=== PATIENT | male | born 1990 | race Caucasian/White ===

== ENCOUNTER 2024-03-23 13:58 | Emergency (ER) | payer OTHER, SELFPAY ==
[2024-03-23 14:17] VITALS: BP 118/81; PULSE 98; RESP 16; TEMP 36.8; O2SAT 98
--- NOTE | 2024-03-23 14:20 | ED_ITS ---
HPI - Skin/Abscess/Foreign Bdy General Chief complaint: Skin/Abscess/Foreign Body Stated complaint: Allergic Reaction On face Time Seen by Provider: 03/23/24 14:21 Source: patient Mode of arrival: ambulatory Limitations: no limitations History of Present Illness HPI narrative: 33 yo M presents with c/o itchy rash to scalp for the past few months. Started mild and getting progressively worse. Has hx of psoriasis and eczema but issues for years. also reports itchy rash to bilateral arms past few days. pain and redness to both sides of scalp this week. concerned for infection . All systems reviewed and negative except as noted above. Related Data Allergies Allergy/AdvReac Type Severity Reaction Status Date / Time amoxicillin Allergy Mild THROAT Verified 03/23/24 14:15 SWELLING Review of Systems Review of Systems: CONSTITUTIONAL: Denies fever, chills, or sweats. EYES: Denies visual changes, redness, or discharge. ENT: Denies rhinorrhea, congestion, sore throat, or otalgia. CARDIOVASCULAR: Denies chest pain, palpitations, or edema. RESPIRATORY: Denies cough or dyspnea. GASTROINTESTINAL: Denies abdominal pain, nausea, vomiting, or diarrhea. GENITOURINARY: Denies dysuria or hematuria. SKIN: Reports rash in itching to scalp and bilateral arms. MUSCULOSKELETAL: Denies back pain, joint pain, or myalgia. NEUROLOGIC: Denies headache, numbness, or weakness. PSYCHIATRIC: Denies anxiety or depression. All other systems reviewed are negative, except as documented in HPI. PMFSH Comments At time of signature, agree with nursing past medical, surgical, social and fami ly history. There is no relevant family history pertinent to the presenting complaint. Exam Narrative: GENERAL: This is a well-nourished, well-developed patient, in no apparent distress. HEAD: normocephalic, atraumatic. EYES: PERRL. Sclera clear/white. Vision is grossly intact. EARS: External ears normal NOSE: External nose normal NECK: Neck supple, non-tender without lymphadenopathy, masses or thyromegaly. CARDIOVASCULAR: Regular rate and rhythm without murmurs, gallops, or rubs. RESPIRATORY: Clear to auscultation. Breath sounds equal bilaterally. No wheezes, rales, or rhonchi. SKIN: warm, Dry, intact, good texture and turgor. mild scaly maculopapular rash to bilateral arms and face. erythematous scaly plaques to scalp. temporal region of scalp erythematous, swollen, warm to touch concerning for cellulitis. NEURO: awake, alert, and oriented to person, place and time. There were no o bvious focal neurologic abnormalities. EXTREMITIES: No joint tenderness, effusion, or edema noted. Course Course Level of Care: Express Care Visit Vital Signs Vital signs: Vital Signs Temperature 36.8 C 03/23/24 14:17 Pulse Rate 98 03/23/24 14:17 Respiratory Rate 16 03/23/24 14:17 Blood Pressure 118/81 03/23/24 14:17 Pulse Oximetry 98 03/23/24 14:17 Oxygen Delivery Room Air 03/23/24 14:17 Temperature 36.8 C 03/23/24 14:17 Pulse Rate 98 03/23/24 14:17 Respiratory Rate 16 03/23/24 14:17 Blood Pressure 118/81 03/23/24 14:17 Pulse Oximetry 98 03/23/24 14:17 Oxygen Delivery Room Air 03/23/24 14:17 reviewed MDM - Skin/Abscess/Foreign Bdy MDM Narrative Medical decision making narrative: Patient is well-appearing, nontoxic. Will treat patient with prednisone for eczema and psoriasis flare. Treat with antibiotic due to concern for cellulitis to scalp. Patient agrees with plan of care. Plans to follow-up with cutter grind tool technician. Patient is aware of diagnosis, understands and agrees to treatment plan. Anticipatory guidance given. Patient agrees to follow-up as directed and is aware of reasons to seek care at the emergency department. Portions of this record may have been created with voice recognition software Discharge Plan Discharge Clinical Impression: Psoriasis of scalp, Cellulitis of head or scalp, Rash and other nonspecific skin eruption Patient Disposition: Home, Self-Care Condition: Stable Instructions: Antibiotic Form, Psoriasis (ED) Additional Instructions: Take prednisone as prescribed. Apply steroid cream to eczema rash. Avoid face. Take an [id number] antihistamine to treat itching such as Benadryl or Zyrtec as directed on packaging instructions. Follow-up with your primary care physician for further evaluation. Patient Language: Surinamese Prescriptions: New prednisone 20 mg tablet See Rx Instructions .ROUTE .COMPLEX Qty: 12 0RF Rx Instructions: Take 3 tablets today, then 2 tablets daily for 3 days then 1 tablet daily for 3 days. triamcinolone acetonide 0.1 % cream 1 applic topical BID PRN (Reason: eczema) Qty: 80 0RF doxycycline hyclate 100 mg capsule 100 mg PO BID 7 Days Qty: 14 0RF Follow-up/Referrals: PHYSICIAN,HIGH SCHOOL BAND DIRECTOR [Primary Care Provider] - Stand Alone Forms: Work/School Release IP Time of Disposition: 14:28
== END 2024-03-23 14:36 | disposition home or self-care (01) ==
PROVIDERS: Emergency Provider Nurse Practitioner Family
DX: L40.9 Psoriasis, unspecified (principal); L03.811 Cellulitis of head [any part, except face]; R21 Rash and other nonspecific skin eruption
CPT/HCPCS: 99213; G0463

== ENCOUNTER 2024-09-17 11:15 | Emergency (ER) | payer BC, SELFPAY ==
[2024-09-17 11:25] VITALS: BP 160/93; PULSE 79; RESP 16; TEMP 36.3; O2SAT 98
--- NOTE | 2024-09-17 11:30 | ED.HA ---
HPI - Headache General Chief Complaint: Headache Stated Complaint: Migraine Time Seen by Provider: 09/17/24 11:20 Source: patient Mode of arrival: ambulatory Limitations: no limitations History of Present Illness HPI Narrative: John is a 34-year-old male patient presenting to the clinic today with complaints of a sudden migraine headache. He reports he does not have a personal history of migraine headaches. Headache just started approximately 5-6 hours ago. Headache is frontal and behind his eyes. He has taken Tylenol and ibuprofen for the pain and is not helping. Rates his pain a 9/10 currently. States he is having associated nausea and photosensitivity. Is requesting a migraine shot. Denies any URI symptoms, fevers, or sore throat. Denies any head injury. Related Data Home Medications ?Medication ?Instructions ?Recorded ?Confirmed ?Last Taken ?Type testosterone cypionate 200 mg/mL mg 09/17/24 Unknown History intramuscular oil Allergies Allergy/AdvReac Type Severity Reaction Status Date / Time amoxicillin Allergy Mild THROAT Verified 09/17/24 11:28 SWELLING Review of Systems Review of Systems: Pertinent positives per HPI. Patient denies any fever, chills, rash, visual changes, dizziness, cough, runny nose, sore throat, shortness of breath, chest pain, palpitations, vomiting, diarrhea, constipation, abdominal pain, or any urinary issues. PMFSH Comments At the time of my signature, I reviewed and agree with the nursing past medical, surgical, social, and family history. There is no relevant family history pertinent to the patient complaint. Exam Narrative: General: Well-developed, well nourished, in no apparent distress Head: Normocephalic, atraumatic Eyes: Pupils equally round and reactive to light bilaterally, EOM intact, sclera and conjunctive clear, no discharge, lids normal Ears: TMs intact and clear, ear canals clear, no drainage, grossly hearing normal. Nose: Nares patent, no discharge, no inflammation, no sinus tenderness. Mouth: Oropharynx without lesions or masses, good dentition, MMM. Tongue midline, even rise and fall of uvula Neck: Supple, trachea midline, no enlargement of anterior or posterior cervical nodes, no thyroid masses or goiter palpable. Cardio: Regular rate and rhythm, s1 and s2 normal, no murmur appreciated. Resp: Clear to auscultation bilaterally anteriorly and posteriorly, no rhonchi, rales, wheezing or rubs Musculoskeletal: No deformity, non-tender to palpation, grossly normal range of motion, muscle strength strong and equal, peripheral pulse strong, no edema, no cyanosis, normal gait and station Neuro: Alert and oriented x4 with normal speech, no focal deficits, cranial nerves I through XII intact, muscle strength 5 out of 5, sensation intact bilaterally, negative Romberg test Course Course Emergency Course: Portions of this record may have been created with voice recognition software. Level of Care: Express Care Visit Vital Signs Vital signs: Vital Signs Temperature 36.3 C L 09/17/24 11: Pulse Rate 79 09/17/24 11:25 Respiratory Rate 16 09/17/24 11: Blood Pressure 160/93 H 09/17/24 11: Pulse Oximetry 98 09/17/24 11: Oxygen Delivery Room Air 09/17/24 11: Temperature 36.3 C L 09/17/24 11:25 Pulse Rate 79 09/17/24 11:25 Respiratory Rate 16 09/17/24 11:25 Blood Pressure 160/93 H 09/17/24 11:25 Pulse Oximetry 98 09/17/24 11:25 Oxygen Delivery Room Air 09/17/24 11:25 Vital signs reviewed MDM - Headache MDM Narrative Medical decision making narrative: At the time of visit patient appears to be in acute distress due to headache. Patient appears to be nontoxic. BP is elevated- 160/93. Denies dizziness but has associated nausea and light sensitivity. Plan: Recommend transfer to the emergency room as patient does not have prior history of migraine headaches and states that this is the worst headache he has ever had. He has already taken Tylenol and ibuprofen and this did not help his headache. Patient declines transfer to the emergency room. Risk and benefits were reviewed. Patient leaving against medical advice per Differential Diagnosis Differential diagnosis: Likely migraine, tension headache, subarachnoid hemorrhage, headache, meningitis and sinusitis Discharge Plan Discharge Clinical Impression: Headache Qualifiers: Headache type: unspecified Headache chronicity pattern: acute headache Intractability: intractable Qualified Code(s): R51.9 - Headache, unspecified Patient Disposition: Left Against Medical Advice Condition: Stable Instructions: Acute Headache (ED) Additional Instructions: Recommend going to the emergency room for further evaluation and you declined. AMA was reviewed Risk include worsening of condition, , disability, brain bleed, brain tumor, and stroke Benefits include further treatment, different diagnosis, and better outcome Follow-up with your PCP as soon as possible or go to the emergency room Patient Language: Indonesian Prescriptions: No Action testosterone cypionate 200 mg/mL oil Follow-up/Referrals: PHYSICIAN,AWNING HANGER SUPERVISOR [Primary Care Provider] - Time of Disposition: 11:38 Quality NIHSS Nursing Documentation ED NIHSS nursing documentation: reviewed/agree
== END 2024-09-17 11:42 | disposition left against medical advice (07) ==
PROVIDERS: Emergency Provider Nurse Practitioner Family
DX: R51.9 Headache, unspecified (principal)
CPT/HCPCS: 99213; G0463

== ENCOUNTER 2024-10-16 02:24 | Emergency (ER) | payer BC, SELFPAY ==
--- NOTE | ~2024-10-16 | XR_ITS ---
XR shoulder RT min 2V, XR scapula RT 10/16/2024 04:22 Indication: Scapular pain Procedure: 3 views right shoulder and 2 views right scapula Comparison: No prior studies for comparison. Findings: There is anatomic alignment. No fracture, subluxation or dislocation. No soft tissue abnorm ality. Impression: 1: No acute fracture. Reviewed, dictated and finalized at location A. Impression: 1: No acute fracture. Impression: 1: No acute fracture.
[2024-10-16 02:26] VITALS: BP 157/102; PULSE 96; RESP 20; TEMP 36.8; O2SAT 98
--- OUTSIDE RECORDS SUMMARY | 2024-10-16 02:26 | XMS_ITS | Encounter Summary ---
Author Organization [facility] Healthcare Address [address] [place] [address] Care Team Providers Care Tennis Professional Name Role Phone Aster Cantu MD Primary Care Provider [phone] Moni Salcido NP Primary Care Provider [phone] Reason for Visit * Reason Onset Date Comments Post call 01/17/2023 Encounter Details Date Type Department Care Team (Late st Contact Info) Description 01/17/2023 Telephone [facility] [address] [address], [address] [place] [address] Lia Boyd MD [address] [place] [address] Post call Social History Tobacco Use Types Packs/Day Years Used Date Smoking Tobacco: Never AUDIT-C Answer Date Recorded Q1: How often do you have a drink containing alc ohol? Monthly or less 01/03/2023 Q2: How many drinks containi ng alcohol do you have on a typical day when you are drinking? 1 or 2 01/03/2023 Q3: How often do you have si x or more drinks on one occasion? 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 Author CCM Chronic Pain Care Plan Chronic Care Management Yes Danii Barboza, RN Note: Problem: Chronic Pain Goals: 1. Minimize further functional decline 2. Maximize quality of life 3. Control pain Strategies: - Activity/exercise program recommendation - Conservative stepwise pain medicine strategy with multi-disciplinary approach - Recommend healthy lifestyle strategies and compensatory methods as needed Reduce the likelihood of falling Lifestyle No Jaqueline Muniz, SALINAS Note: Below are four things you can do to prevent falls: Begin an exercise program to improve your leg strength & balance Ask your doctor or pharmacist to review your medicines Get annual eye check-ups & update your eyeglasses Make your home safer by: Removing clutter & tripping hazards Putting railings on all stairs & adding grab bars in the bathroom Having good lighting, especially on stairs Contact your local community or [facility] for information on exercise, fall prevention programs, or options for improving home safety. documented as of this encounter Visit Diagnoses Not on filedocumented in this encounter Care Teams Tennis Professional Relationship Specialty Start Date End Date Aster Cantu MD [address] [place] [address] PCP - General Internal Medicine 12/17/21 03/28/24 Moni Salcido NP [address] [place] [address] PCP - General Family Medicine 03/29/24 documented as of this encounter
--- OUTSIDE RECORDS SUMMARY | 2024-10-16 02:26 | XMS_ITS ---
Author Organization [facility], Address [address] [place] [address] Care Team Providers Care Cooker Loader Name Role Phone Aster Cantu Primary Care Provider Sarbjit Henriquez Unavailable [phone] Nelda Sanchez Unavailable [phone] ALLERGIES Allergen (clinical drug ingredient) Drug/Non Drug Allergy documented on EMR Reaction Allergy Type Onset Date Status amoxicillin Amoxicillin Unknown Drug Allergy Act padmaja RESULTS Component Value Reference Range Notes MRI : Lumbar without contras t Reviewed date:03/15/2024 11:12:39 AM Interpretation: Performing Lab: Notes/Report: X ray : Lumbar Spine 3 views , AP, Lateral, Spot Reviewed date:03/11/2024 02:23:25 PM Interpretation: Performing Lab: Notes/Report: REASON FOR VISIT Lumbar MEDICATIONS Medication SIG (Take, Route, Frequency, Duration) Notes Start Date End Date Status HYDROcodone-Acetamino phen Active Testosterone Replacement Therapy Active SOCIAL HISTORY Tobacco Use: Social History Observation Description Date Details (start date - stop date) Never Smoker NA - NA Sex Assigned At : Social History Observation Description Sex Assigned At Unknown Tobacco Use/Smoking Question Answer Notes Are you a nonsmoker Alcohol Screen Question Answer Notes Did you have a drink containing alcohol in the p ast year? No Points 0 Interpretation Negative PROBLEMS Problem Type ICD Code Onset Dates Problem Status W/U Status Risk SNOMED Code Notes Problem Low back pain of multiple sites of spine with sciatica (M54.40) Active confirmed Problem DDD (degenerative disc disease), lumbar (M51.36) Active confirmed Degenerative disc disease (66543476) VITAL SIGNS BMI 27.98 kg/m2 03/11/2024 Height 70 in 03/11/2024 Weight 195 lbs 03/11/2024 Encounters Encounter Location Date Provider Diagnosis [facility] [address] [place] [address] 03/11/2024 Nelda Sanchez Other low back pain M54.59 and Disc Degeneration, Lumbar Region with Leg Pain M51.361 ASSESSMENTS Encounter Date Diagnosis Assessment Notes Treatment Notes Treatment Clinical Notes 03/11/2024 Other low back pain (ICD-10 - M54.59) 03/11/2024 Disc Degeneration, Lumbar Region with Leg Pain (ICD-10 - M51.361) PLAN OF TREATMENT No Information Progress Notes * Examination Category Sub-Category Detail Notes X-Ray LUMBAR X-RAY: AP and lateral v iews of the lumbar spine were obtained today. They demonstrate L3 to 4 with mild disc degeneration. L4 to 5 with moderate disc degeneration and there is a sacralized L5
--- OUTSIDE RECORDS SUMMARY | 2024-10-16 02:27 | XMS_ITS | Patient Health Record ---
Author Organization [facility] Address [address] [place] [address] Care Team Providers Care Applied Mathematician Name Role Phone Marlys Hyman Primary Care Provider Yossi Giang Unavailable [phone] Chrissy CORDERO, Valdez Unavailable Unavailable Allergies Allergen (clinical drug ingredient) Drug/Non Drug Allergy documented on EMR Reaction Allergy Type Onset Date Status amoxicillin Amoxicillin Unknown Drug Allergy Act padmaja Reason For Referral No Information Medications Medication SIG (Take, Route, Frequency, Duration) Notes Start Date End Date Status Testosterone Cypionate Active Anastrozole Active Easy Touch Syringe Barrel 1ml Active Naproxen Active Cyclobenzaprine HCl Active methylPREDNISolone A ctive Neurontin 300 MG 1 capsule [address] ee times a day; Duration: 30 day(s) 05/31/2020 Active Social History Tobacco Use: Social History Observation Description Date Details (start date - stop date) Never Smoker NA - NA Tobacco Use/Smoking Question Answer Notes Are you a nonsmoker Alcohol Screen (Audit-C) Question Answer Notes Did you have a drink containing alcohol in the p ast year? Yes Points 0 Interpretation Negative Problems Problem Type SNOMED Code ICD Code Onset Dates Problem Status W/U Status Risk Notes Problem Fear of medical treatment (821831662) Fear of injections and transfusions (F40.231) Active confirmed Problem Lumbosacral spondylosis without myelopathy (71587507) Spondylosis without myelopathy or radiculopathy, lumbar region (M47.816) Active confirmed Problem Degeneration of lumbar intervertebral disc (94647260) Other intervertebral disc degeneration, lumbar region (M51.36) Active confirmed Problem Lumbar radiculopathy (820967675) Radiculopathy, lumbar region (M54.16) Active confirmed Plan Of Treatment No Information Insurance Providers Payer Name Payer Address Payer Phone Subscriber Number Group Number Insured Name Patient Relationship to Insured Coverage Start Date Coverage End Date [employer] [address] [address] [place] [address] [id number] John Montano Self - patient is the insured Medical (General) History Surgical History Surgery Date(Month/Year) reconstruction on finger
--- OUTSIDE RECORDS SUMMARY | 2024-10-16 02:27 | XMS_ITS ---
Author Organization [facility], Address [address] [facility] [address] [place] [address] Care Team Providers Care Fiberglass Boat Maker Name Role Phone AlondraAster webber Primary Care Provider Sarbjit Henriquez Unavailable [phone] REASON FOR VISIT SNN MRI Cervical PROCEDURES Procedure Date Ordered Date Performed Result Body Sit e Lumbar Epidural Steroid Injection 03/29/2024 04/01/2024 N/ A Encounters Encounter Location Date Provider Diagnosis [facility] [facility] [address] [place] [address] 03/29/2024 Sarbjit Tavares DDD (degenerative disc disease), lumbar M51.36 ASSESSMENTS Encounter Date Diagnosis Assessment Notes Treatment Notes Treatment Clinical Notes 03/29/2024 DDD (degenerative disc disease), lumbar (ICD-10 - M51.36) PLAN OF TREATMENT No Information
--- OUTSIDE RECORDS SUMMARY | 2024-10-16 02:27 | XMS_ITS | Clinical Summary ---
Author Organization [facility] Address [address] [place] [address] Care Team Providers Care Mohel Name Role Phone Moni Salcido NP Primary Care Provider [phone] Allergies Active Allergy Reactions Criticality Noted Date Comments Amoxicillin Hives,Swelling High 09/08/2012 Swelling Medications syringe, disposable, (Easy Touch Luer Lock Syringe) 1 mL syringe USE FOR INJECTIONS DIRECTED (INCLUDE 18G AND 23G NEEDLES) 0 Active testosterone cypionate (DEPO-TESTOTERO NE) 200 mg/mL injection Inject 1.1 mL (220 mg total) into the muscle as instructed every 14 (fourteen) days 2.5 mL 1 5 Active Active Problems Problem Noted Date Diagnosed Date Healthcare maintenance 03/29/2024 Assessment & Plan (03/29/2024 11:55 AM PHYSICS TEACHER): - Obtain labs - Discussed with the patient current recommendations for routine screenings. Recommend colon cancer screening with colonoscopy or a DNA stool testing such as Cologuard starting age 45. Prostate cancer screening is recommended from 55-60 9 years old. Discussed diet exercise and importance of maintaining a healthy weight. Hives 03/29/2024 Assessment & Plan (03/29/2024 11:58 AM PHYSICS TEACHER): - Recent significant episode on face, neck and scalp - Patient instructed to report to emergency room if rash occurs with shortness of Breath - Report back to the office with continued symptoms - May use small amount of vpon-[id number] hydrocortisone and Benadryl cream for residual hives of forehead at this time. Discussed do not want to use larger amounts of steroids on delicate facial skin as can cause damage - Patient denies any change in hygiene products, detergents, or bedding. Denies food trigger. - Refer to ripper operator for further evaluation of cause of hives Atopic dermatitis 03/29/2024 Assessment & Plan (03/29/2024 11:59 AM PHYSICS TEACHER): - Chronic, stable - Patient with recent hives exacerbation but no recent eczema exacerbation - Refer to dermatology for further evaluation if recent hives and history of eczema - Keep skin clean and dry - Ensure hydrated skin with frequent use of lotions/emollients Low testosterone in male 03/29/2024 Assessment & Plan (03/29/2024 12:00 PM PHYSICS TEACHER): - Chronic - Obtain updated testosterone level - Dosing of testosterone based on updated testosterone level. Previously receiving 200 milligrams/milliliter testosterone cypionate injection every 2 weeks Lumbosacral spondylosis without myelopathy 12/01 Lumbar radiculopathy 12/02/2023 Fear of injections and transfusions 12/02/2023 Spondylosis of lumbar region without myelopathy or radiculopathy 08/22/2022 Intractable low back pain 08/22/2022 DDD (degenerative disc disease), lumbar 01/24/20 Lumbar discogenic pain syndrome 01/23/2022 FATUMA (generalized anxiety disorder) 09/21/2021 Assessment & Plan (03/29/2024 11:52 AM PHYSICS TEACHER): - Chronic, stable - Currently managed without medication Insomnia 09/15/2019 Assessment & Plan (03/29/2024 11:51 AM PHYSICS TEACHER): - Chronic, stable - Currently managed without medication Chronic bilateral low back pain with bilateral s ciatica 09/15/2019 Assessment & Plan (03/29/2024 11:55 AM PHYSICS TEACHER): - Chronic, stable - Follows with pain management, Dr. Boyd. Per Dr. Boyd I had an extensive discussion with the patient regarding his treatment options. Unfortunately there are several interventions that could possibly be beneficial such as peripheral nerve stimulation or intradiscal injection therapy however this will not be approved by the patient's insurance plan. We discussed the option of caudal epidural steroid injection. I explained the procedure in full detail discussing all the risks and benefits. The patient understands and wishes to proceed with this option. - Injection scheduled for April 16, 2024 - Not currently taking [place] Resolved Problems Problem Noted Date Diagnosed Date Resolved Date No diagnosis on [place] I 08/22/202203/29 Other chronic pain 08/22/2022 4 Chewing tobacco nicotine dep endence, uncomplicated 07/14/2018 03/29/2024 Immunizations Immunization Administration Dates Next Due Influenza, Quadrivalent, Spl it, Preservative Free, Intramuscular 03/02/2020,01/13/2019 Tdap 01/13/2019 Surgical History Surgery Date Site/Laterality Comments HAND SURGERY Medical History Medical History Date Comments Low back pain Chronic pain disorder Family History Medical History Relation Name Comments Cancer Father Heart disease Father Cancer Maternal Grandfather Diabetes Maternal Grandfather Heart disease Maternal Grandfather Cancer Paternal Grandmother Relation Name Status Comments Father Maternal Grandfather Paternal Grandmother Social History Tobacco Use Types Packs/Day Years Used Date Smoking Tobacco: Never Smokeless Tobacco: Never Tobacco Cessation:Counseling Given: Not Answered AUDIT-C Answer Date Recorded Q1: How often do you have a drink containing alcohol? Monthly or less 03/29/2024 Q2: How many drinks containi ng alcohol do you have on a typical day when you are drinking? Patient does not drink Q3: How often do you have si x or more drinks on one occasion? 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 file Obstetrics History Last Filed Vital Signs Vital Sign Reading Time Taken Comments Blood Pressure 122/82 03/29/2024 10:08 AM PHYSICS TEACHER Pulse 84 03/29/2024 10:08 AM PHYSICS TEACHER Temperature 36.4 C (97.6 F) 03/29/2024 10:08 AM PHYSICS TEACHER Respiratory Rate 20 03/29/2024 10:08 AM PHYSICS TEACHER Oxygen Saturation 95% 03/29/2024 10:08 AM PHYSICS TEACHER Inhaled Oxygen Concentration - - Weight 90.8 kg (200 lb 1.6 oz) 03/29/2024 10:08 AM PHYSICS TEACHER Height 177.8 cm (5' 10) 03/29/2024 10:08 AM PHYSICS TEACHER Body Mass Index 28.71 03/29/2024 10:08 AM PHYSICS TEACHER Plan of Treatment Health Maintenance Due Date Last Done Comments Varicella Vaccines (1 of 2 - 13+ 2-dose series) 2003 Regular Well Visit/Exam 18-64 2008 Influenza Vaccine (Season Ended) 2024 03/02/2020, 01/13/2019 Depression Screening 03/29/2025 03/29/2024, 03/29/2024 DTaP/Tdap/Td Vaccine (2 - Td or Tdap) 01/13/2029 01/13/2019 Hepatitis B Screening Completed 03/29/2024 Hepatitis C Screening Completed 03/29/2024 HPV Vaccines Aged Out No longer eligi ble based on patient's age to complete this topic Pneumococcal vaccine <65 Aged Out No longer eligible based on patient's age to complete this topic Goals Goal Patient Goal Type Associated Problems [...] Reduce the likelihood of falling Lifestyle No Jqaueline Muniz, RN Note: Below are four things you can [...] on stairs Contact your local community or senior [place] for information on exercise, fall prevention programs, or options for improving home safety. Procedures Procedure Name Priority Date/Time Associated Diagnosis Comments HEPATITIS C ANTIBODY Routine 03/29/2024 10:53 AM PHYSICS TEACHER Encounter for hepatitis C screening test for low risk patient from Last 3 Months or Most Recently Relevant to Health Maintenance Results * Hepatitis C antibody Blood (03/29/2024 10:53 AM PHYSICS TEACHER) Hep C Ab Nonreactive Nonreactive Comment: Antibodies to HCV not detected. Does NOT exclude the possibility of recent exposure to HCV. Current interpretive data was last revised on 21 Interpretive Data Nonreactive: Antibodies to HCV not detected. Does NOT exclude the possibility of recent exposure to HCV. Equivocal: Equivocal for HCV antibodies. Supplemental molecular testing will be automatically performed to determine infection status in accordance with current CDC screening recommendations. Reactive: Positive for HCV antibodies. This may represent current or past HCV infection. Supplemental molecular testing will be automatically performed to determine current infection status in accordance with current CDC screening recommendations. Interpretive data was last revised on 2019. Blood 03/29/2024 10:5 3 AM PHYSICS TEACHER 03/29/2024 12:23 PM PHYSICS TEACHER Moni Salcido NP LAB MICROBIOLOGY - GENERAL OR DERABLES Final Result [facility] [address] [facility] Department of Laboratories [place], [place] [id number] from Last 3 Months or Most Recently Relevant to Health Maintenance Insurance [facility] HMO/PPO Address: [address] [address] [place] [address] [facility] HMO/PPO Address: [facility] [address] [place] [address] Care Teams Mohel Relationship Specialty Start Date End Date Moni Salcido NP PCP - General Family Medicine 03/29/24
--- OUTSIDE RECORDS SUMMARY | 2024-10-16 02:27 | XMS_ITS | Referral Summary ---
Author Organization [facility] Address [address] [place] [address] Care Team Providers Care Inclinometer Tester Name Role Phone Moni Salcido NP Primary Care Provider [phone] Allergies Active Allergy Reactions Criticality Noted Date [...] 03/29/2024 Assessment & Plan (03/29/2024 11:55 AM FOUNDATION DRILL OPERATOR): - Obtain labs - Discussed with the patient current recommendations for routine screenings. Recommend colon cancer screening with colonoscopy or a DNA stool testing such as Cologuard starting age 45. Prostate cancer screening is recommended from 55-60 9 years old. Discussed diet exercise and importance of maintaining a healthy weight. Hives 03/29/2024 Assessment & Plan (03/29/2024 11:58 AM FOUNDATION DRILL OPERATOR): - Recent significant episode on face, neck and scalp - Patient instructed to report to emergency room if rash occurs with shortness of Breath - Report back to the office with continued symptoms - May use small amount of dvhk-xgu-joopjoj hydrocortisone and Benadryl cream for residual hives of forehead at this time. Discussed do not want to use larger amounts of steroids on delicate facial skin as can cause damage - Patient denies any change in hygiene products, detergents, or bedding. Denies food trigger. - Refer to etiology teacher for further evaluation of cause of hives Atopic dermatitis 03/29/2024 Assessment & Plan (03/29/2024 11:59 AM FOUNDATION DRILL OPERATOR): - Chronic, stable - Patient with recent hives exacerbation but no recent eczema exacerbation - Refer to dermatology for further evaluation if recent hives and history of eczema - Keep skin clean and dry - Ensure hydrated skin with frequent use of lotions/emollients Low testosterone in male 03/29/2024 Assessment & Plan (03/29/2024 12:00 PM FOUNDATION DRILL OPERATOR): - Chronic - Obtain updated testosterone level [...] 09/21/2021 Assessment & Plan (03/29/2024 11:52 AM FOUNDATION DRILL OPERATOR): - Chronic, stable - Currently managed without medication Insomnia 09/15/2019 Assessment & Plan (03/29/2024 11:51 AM FOUNDATION DRILL OPERATOR): - Chronic, stable - Currently managed without medication Chronic bilateral low back pain with bilateral s ciatica 09/15/2019 Assessment & Plan (03/29/2024 11:55 AM FOUNDATION DRILL OPERATOR): - Chronic, stable - Follows with pain [...] April 16, 2024 - Not currently taking [place] Resolved Problems Problem Noted Date Diagnosed Date Resolved Date No diagnosis on [place] I 08/22/202203/29 Other chronic pain 08/22/2022 4 Chewing tobacco nicotine dep endence, uncomplicated 07/14/2018 03/29/2024 Immunizations Immunization Administration Dates Next Due Influenza, Quadrivalent, Spl it, Preservative Free, Intramuscular 03/02/2020,01/13/2019 Tdap 01/13/2019 Social History Tobacco Use Types Packs/Day Years [...] on file Legal Sex Male 1:38 AM FOUNDATION DRILL OPERATOR Gender Identity Not on file Sexual Orientation Not on file 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 Filed Vital Signs Vital Sign Reading Time Taken Comments Blood Pressure 122/82 03/29/2024 10:08 AM FOUNDATION DRILL OPERATOR Pulse 84 03/29/2024 10:08 AM FOUNDATION DRILL OPERATOR Temperature 36.4 C (97.6 F) 03/29/2024 10:08 AM FOUNDATION DRILL OPERATOR Respiratory Rate 20 03/29/2024 10:08 AM FOUNDATION DRILL OPERATOR Oxygen Saturation 95% 03/29/2024 10:08 AM FOUNDATION DRILL OPERATOR Inhaled Oxygen Concentration - - Weight 90.8 kg (200 lb 1.6 oz) 03/29/2024 10:08 AM FOUNDATION DRILL OPERATOR Height 177.8 cm (5' 10) 03/29/2024 10:08 AM FOUNDATION DRILL OPERATOR Body Mass Index 28.71 03/29/2024 10:08 AM FOUNDATION DRILL OPERATOR Plan of Treatment Not on file Goals Goal Patient Goal Type Associated Problems [...] stairs Contact your local community or senior [place] for information on exercise, fall prevention programs, or options for improving home safety. Procedures Procedure Name Priority Date/Time Associated Diagnosis Comments HEPATITIS C ANTIBODY Routine 03/29/2024 10:53 AM FOUNDATION DRILL OPERATOR Encounter for hepatitis C screening test for low risk patient from Last 3 Months or Most Recently Relevant to Health Maintenance Results * Hepatitis C antibody Blood (03/29/2024 10:53 AM FOUNDATION DRILL OPERATOR) Hep C Ab Nonreactive Nonreactive Comment: Antibodies [...] on 2019. Blood 03/29/2024 10:5 3 AM FOUNDATION DRILL OPERATOR 03/29/2024 12:23 PM FOUNDATION DRILL OPERATOR Moni Salcido NP LAB MICROBIOLOGY - GENERAL OR DERABLES Final Result [facility] [address] [facility] Department [place] [address] from Last 3 Months or Most Recently Relevant to Health Maintenance Insurance [address] [place] [address] [facility] Care Teams Inclinometer Tester Relationship Specialty Start Date End Date Moni Salcido NP PCP - General Family Medicine 03/29/24
--- OUTSIDE RECORDS SUMMARY | 2024-10-16 02:27 | XMS_ITS | Patient Health Record ---
Author Organization [facility] Address [address] [place] [address] Care Team Providers Care Hospitality Host Name Role Phone Aster Cantu Primary Care Provider Sarbjit Henriquez Unavailable [phone] Nelda Sanchez Unavailable [phone] ALLERGIES Allergen (clinical drug ingredient) Drug/Non Drug [...] PM Interpretation: Performing Lab: Notes/Report: REASON FOR REFERRAL No Information MEDICATIONS Medication SIG (Take, Route, Frequency, Duration) [...] lumbar (M51.36) Active confirmed Degenerative disc disease (69732254) VITAL SIGNS Height 70 in 03/11/2024 Weight 195 lbs 03/11/2024 BMI 27.98 kg/m2 03/11/2024 PROCEDURES Procedure Date Ordered Date Performed Result Body Sit e Lumbar Epidural Steroid Injection 03/29/2024 04/01/2024 N/ A Encounters Encounter Location Date Provider Diagnosis [facility] [address] [facility] [address] [place] [address] 03/11/2024 Nelda Sanchez Other low back pain M54.59 and Disc Degeneration, Lumbar Region with Leg Pain M51.361 [facility] [address] [facility] [address] [place] [address] 03/29/2024 Sarbjit Tavares DDD (degenerative disc disease), lumbar M51.36 ASSESSMENTS Encounter Date Diagnosis Assessment Notes Treatment Notes Treatment Clinical Notes 03/11/2024 Other low back pain (ICD-10 - M54.59) 03/11/2024 Disc Degeneration, Lumbar Region with Leg Pain (ICD-10 - M51.361) 03/29/2024 DDD (degenerative disc disease), lumbar (ICD-10 - M51.36) PLAN OF TREATMENT No Information Insurance Providers Payer Name Payer Address Payer Phone Subscriber Number Group Number Insured Name Patient Relationship to Insured Coverage Start Date Coverage End Date r [address] [address] [facility] [place] [place] [address] [id number] John Montano Self - patient is the insured MEDICAL (GENERAL) HISTORY Medical History History ICD Code Unremarkable Surgical History Surgery Date(Month/Year) Right [place] Finger Hospitalization History Reason Date(Month/Year) As per above.
--- OUTSIDE RECORDS SUMMARY | 2024-10-16 02:27 | XMS_ITS | Clinical Summary ---
Author Organization [facility] Address [address] [place] [address] Care Team Providers Care Application Services Manager Name Role Phone Aster Cantu MD Primary Care Provider [phone] Allergies Active Allergy Reactions Criticality Noted Date Comments Amoxicillin Hives High 09/26/2017 Medications Easy Touch Luer Lock Syringe 1 mL Syringe USE FOR INJECTIONS DIRECTED (INCLUDE 18G AND 23G NEEDLES) 08/19/19 20 Active anastrozole (ARIMIDEX) 1 mg tablet Active testosterone cypionate (DEPO-TESTOSTE JANNETH) 200 mg/mL Oil INJECT 1ML(200MG) INTRAMUSCULARLY ONCE WEEKLY 03/21/20 21 Active CLOMIPHENE CITRATE ORAL Take by mouth. Ac tive tiZANidine (ZANAFLEX) 4 mg TabletIndicati ons:Acute pain of left shoulder,Muscl e strain of left shoulder, initial encounter Take 1 Tablet (4 mg) by mouth every 6 hours as needed for Spasm. 25 Tablet 10/25/19 22 Active Additional Information Patient not taking.Reported on 12/18/2021 Active Problems Problem Noted Date Diagnosed Date FATUMA (generalized anxiety disorder) 09/21/2021 Chronic bilateral low back pain with bilateral s ciatica 09/15/2019 Insomnia 09/15/2019 Chewing tobacco dependence 07/14/2018 Resolved Problems Problem Noted Date Diagnosed Date Resolved Date Spasm of muscle of lower back 09/15/2019 07/09/2021 Immunizations Immunization Administration Dates Next Due (ADACEL/BOOSTRIX)(10 YR UP) TDAP VACCINE, 0.5ML, IM 01/13/2019 INFLUENZA VACCINE QUADRIVALENT 6 MOS UP PF IM Influenza Seasonal Unspecified Formulation IM Family History Medical History Relation Name Comments Unknown Father Cancer Maternal Grandfather prostat e Diabetes Maternal Grandfather Heart Disease Maternal Grandfather Unknown Maternal Grandmother Healthy Mother Unknown Paternal Grandfather Unknown Paternal Grandmother Healthy Sister Relation Name Status Comments Father Maternal Grandfather Maternal Grandmother Mother Paternal Grandfather Paternal Grandmother Sister Social History Tobacco Use Types Packs/Day Years Used Date Smoking Tobacco: Never Smokeless Tobacco: Current Chew Tobacco Cessation:Ready to Q uit: Yes; Counseling Given: Yes Comments:nicotine salt pouches Alcohol Use Standard Drinks/Week Comments Yes 0 (1 standard drink = 0.6 oz pur e alcohol) Sex and Gender Information Value Date Recorded Sex Assigned at Not on file Legal Sex Male 1:12 PM CDT Gender Identity Not on file Sexual Orientation Not on file Last Filed Vital Signs Vital Sign Reading Time Taken Comments Blood Pressure 118/82 12/18/2021 2:08 PM CDT Pulse 96 12/18/2021 2:08 PM CDT Temperature 37.1 C (98.7 F) 12/18/2021 2:08 PM CDT Respiratory Rate 16 12/18/2021 2:08 PM CDT Oxygen Saturation 96% 12/18/2021 2:08 PM CDT Inhaled Oxygen Concentration - - Weight 87.4 kg (192 lb 9.6 oz) 12/18/2021 2:08 P M CDT Height 177.8 cm (5' 10) 12/18/2021 2:08 PM CDT Body Mass Index 27.64 12/18/2021 2:08 PM CDT Plan of Treatment Health Maintenance Due Date Last Done Comments HEPATITIS B VACCINES (1 of 3 - 19+ 3-dose series) 2009 Preventative Visit- Commercial 03/31/2024 09/21/2021, 09/21/2020, 09/14/2019, Additional history exists INFLUENZA VACCINE (#1) 2024 , 01/13/2019, 07/14/2018 DTAP/TDAP/TD VACCINES (2 - Td or Tdap) 01/13/2029 01/13/2019 HPV VACCINES Aged Out No longer eligi ble based on patient's age to complete this topic Insurance [address] [place] [address] [facility] CHOICE PLUS [address] [facility] [place] [address] [facility] OPTIONS PPO [id number] Care Teams Application Services Manager Relationship Specialty Start Date End Date Aster Cantu MD [address] [place] [address] PCP - General Internal Medicine 09/20/20
--- OUTSIDE RECORDS SUMMARY | 2024-10-16 03:23 | XMS_ITS | Clinical Summary ---
Author Organization [facility] Address [address] [place] [address] Care Team Providers Care Boilermaker Fitter Name Role Phone Aster Cantu MD Primary Care Provider [phone] Allergies Active Allergy Reactions Criticality Noted Date [...] age to complete this topic Insurance [address] [facility] [place] [address] [facility] CHOICE PLUS [address] [facility] [place] [address] [facility] OPTIONS PPO [id number] Care Teams Boilermaker Fitter Relationship Specialty Start Date End Date Aster Cantu MD [address] [place] [address] PCP - General Internal Medicine 09/20/20
--- OUTSIDE RECORDS SUMMARY | 2024-10-16 03:23 | XMS_ITS | Encounter Summary ---
Author Organization [facility] Address [address] [place] [address] Care Team Providers Care Tools And Parts Attendant Name Role Phone Aster Cantu MD Primary Care Provider [phone] Moni Salcido NP Primary Care Provider [phone] Reason for Visit * Reason Onset Date Comments Post call 01/17/2023 Encounter Details Date Type Department Care Team (Late st Contact Info) Description 01/17/2023 Telephone [facility] [address] [address], [address] [place] [address] Lia Boyd MD [address] [place] [address] Post call Social History Tobacco [...] on file Legal Sex Male 1:38 AM MARKETING COMMUNITY LIAISON Gender Identity Not on file Sexual Orientation [...] on stairs Contact your local community or [facility] for information on exercise, fall prevention programs, or options for improving home safety. documented as of this encounter Visit Diagnoses Not on filedocumented in this encounter Care Teams Tools And Parts Attendant Relationship Specialty Start Date End Date Aster Cantu MD [address] [place] [address] PCP - General Internal Medicine 12/17/21 03/28/24 Moni Salcido NP [address] [place] [address] PCP - General Family Medicine 03/29/24 documented as of this encounter
--- OUTSIDE RECORDS SUMMARY | 2024-10-16 03:23 | XMS_ITS | Clinical Summary ---
Author Organization [facility] Address [address] [place] [address] Care Team Providers Care Financial Systems Director Name Role Phone Moni Salcido NP Primary Care Provider [phone] Allergies Active Allergy Reactions Criticality Noted Date [...] 03/29/2024 Assessment & Plan (03/29/2024 11:55 AM ROLLING MILL OPERATOR): - Obtain labs - Discussed with the patient current recommendations for routine screenings. Recommend colon cancer screening with colonoscopy or a DNA stool testing such as Cologuard starting age 45. Prostate cancer screening is recommended from 55-60 9 years old. Discussed diet exercise and importance of maintaining a healthy weight. Hives 03/29/2024 Assessment & Plan (03/29/2024 11:58 AM ROLLING MILL OPERATOR): - Recent significant episode on face, neck and scalp - Patient instructed to report to emergency room if rash occurs with shortness of Breath - Report back to the office with continued symptoms - May use small amount of xudr-aiz-wegfksp hydrocortisone and Benadryl cream for residual hives of forehead at this time. Discussed do not want to use larger amounts of steroids on delicate facial skin as can cause damage - Patient denies any change in hygiene products, detergents, or bedding. Denies food trigger. - Refer to ad terminal makeup operator for further evaluation of cause of hives Atopic dermatitis 03/29/2024 Assessment & Plan (03/29/2024 11:59 AM ROLLING MILL OPERATOR): - Chronic, stable - Patient with recent hives exacerbation but no recent eczema exacerbation - Refer to dermatology for further evaluation if recent hives and history of eczema - Keep skin clean and dry - Ensure hydrated skin with frequent use of lotions/emollients Low testosterone in male 03/29/2024 Assessment & Plan (03/29/2024 12:00 PM ROLLING MILL OPERATOR): - Chronic - Obtain updated testosterone [...] 09/21/2021 Assessment & Plan (03/29/2024 11:52 AM ROLLING MILL OPERATOR): - Chronic, stable - Currently managed without medication Insomnia 09/15/2019 Assessment & Plan (03/29/2024 11:51 AM ROLLING MILL OPERATOR): - Chronic, stable - Currently managed without medication Chronic bilateral low back pain with bilateral s ciatica 09/15/2019 Assessment & Plan (03/29/2024 11:55 AM ROLLING MILL OPERATOR): - Chronic, stable - Follows with [...] April 16, 2024 - Not currently taking [place] Resolved Problems Problem Noted Date Diagnosed Date Resolved Date No diagnosis on [place] I 08/22/202203/29 Other chronic pain 08/22/2022 4 [...] on file Legal Sex Male 1:38 AM ROLLING MILL OPERATOR Gender Identity Not on file Sexual Orientation Not on file 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 file Obstetrics History Last Filed Vital Signs Vital Sign Reading Time Taken Comments Blood Pressure 122/82 03/29/2024 10:08 AM ROLLING MILL OPERATOR Pulse 84 03/29/2024 10:08 AM ROLLING MILL OPERATOR Temperature 36.4 C (97.6 F) 03/29/2024 10:08 AM ROLLING MILL OPERATOR Respiratory Rate 20 03/29/2024 10:08 AM ROLLING MILL OPERATOR Oxygen Saturation 95% 03/29/2024 10:08 AM ROLLING MILL OPERATOR Inhaled Oxygen Concentration - - Weight 90.8 kg (200 lb 1.6 oz) 03/29/2024 10:08 AM ROLLING MILL OPERATOR Height 177.8 cm (5' 10) 03/29/2024 10:08 AM ROLLING MILL OPERATOR Body Mass Index 28.71 03/29/2024 10:08 AM ROLLING MILL OPERATOR Plan of Treatment Health Maintenance Due Date [...] Reduce the likelihood of falling Lifestyle No Jaquelien Muniz, RN Note: Below are four things [...] stairs Contact your local community or senior [place] for information on exercise, fall prevention programs, or options for improving home safety. Procedures Procedure Name Priority Date/Time Associated Diagnosis Comments HEPATITIS C ANTIBODY Routine 03/29/2024 10:53 AM ROLLING MILL OPERATOR Encounter for hepatitis C screening test for low risk patient from Last 3 Months or Most Recently Relevant to Health Maintenance Results * Hepatitis C antibody Blood (03/29/2024 10:53 AM ROLLING MILL OPERATOR) Hep C Ab Nonreactive Nonreactive Comment: [...] on 2019. Blood 03/29/2024 10:5 3 AM ROLLING MILL OPERATOR 03/29/2024 12:23 PM ROLLING MILL OPERATOR Moni Salcido NP LAB MICROBIOLOGY - GENERAL OR DERABLES Final Result [facility] [address] [facility] Department of Laboratories [place], [place] [id number] from Last 3 Months or Most Recently Relevant to Health Maintenance Insurance [facility] H[facility]/PPO Address: [address] [address] [place] [address] [facility] HMO/PPO Address: [facility] [address] [place] [address] Care Teams Financial Systems Director Relationship Specialty Start Date End Date Moni Salcido NP PCP - General Family Medicine 03/29/24
--- OUTSIDE RECORDS SUMMARY | 2024-10-16 03:23 | XMS_ITS | Referral Summary ---
Author Organization [facility] Address [address] [place] [address] Care Team Providers Care Retail District Manager Name Role Phone Moni Salcido NP Primary Care Provider [phone] Allergies Active Allergy Reactions Criticality Noted Date [...] 03/29/2024 Assessment & Plan (03/29/2024 11:55 AM RN ONCOLOGY RESEARCH): - Obtain labs - Discussed with the patient current recommendations for routine screenings. Recommend colon cancer screening with colonoscopy or a DNA stool testing such as Cologuard starting age 45. Prostate cancer screening is recommended from 55-60 9 years old. Discussed diet exercise and importance of maintaining a healthy weight. Hives 03/29/2024 Assessment & Plan (03/29/2024 11:58 AM RN ONCOLOGY RESEARCH): - Recent significant episode on face, neck and scalp - Patient instructed to report to emergency room if rash occurs with shortness of Breath - Report back to the office with continued symptoms - May use small amount of fkqh-orb-acitkfg hydrocortisone and Benadryl cream for residual hives of forehead at this time. Discussed do not want to use larger amounts of steroids on delicate facial skin as can cause damage - Patient denies any change in hygiene products, detergents, or bedding. Denies food trigger. - Refer to tenter frame operator for further evaluation of cause of hives Atopic dermatitis 03/29/2024 Assessment & Plan (03/29/2024 11:59 AM RN ONCOLOGY RESEARCH): - Chronic, stable - Patient with recent hives exacerbation but no recent eczema exacerbation - Refer to dermatology for further evaluation if recent hives and history of eczema - Keep skin clean and dry - Ensure hydrated skin with frequent use of lotions/emollients Low testosterone in male 03/29/2024 Assessment & Plan (03/29/2024 12:00 PM RN ONCOLOGY RESEARCH): - Chronic - Obtain updated testosterone level [...] 09/21/2021 Assessment & Plan (03/29/2024 11:52 AM RN ONCOLOGY RESEARCH): - Chronic, stable - Currently managed without medication Insomnia 09/15/2019 Assessment & Plan (03/29/2024 11:51 AM RN ONCOLOGY RESEARCH): - Chronic, stable - Currently managed without medication Chronic bilateral low back pain with bilateral s ciatica 09/15/2019 Assessment & Plan (03/29/2024 11:55 AM RN ONCOLOGY RESEARCH): - Chronic, stable - Follows with pain [...] April 16, 2024 - Not currently taking [place] Resolved Problems Problem Noted Date Diagnosed Date Resolved Date No diagnosis on [place] I 08/22/202203/29 Other chronic pain 08/22/2022 4 [...] on file Legal Sex Male 1:38 AM RN ONCOLOGY RESEARCH Gender Identity Not on file Sexual Orientation Not on file 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 Filed Vital Signs Vital Sign Reading Time Taken Comments Blood Pressure 122/82 03/29/2024 10:08 AM RN ONCOLOGY RESEARCH Pulse 84 03/29/2024 10:08 AM RN ONCOLOGY RESEARCH Temperature 36.4 C (97.6 F) 03/29/2024 10:08 AM RN ONCOLOGY RESEARCH Respiratory Rate 20 03/29/2024 10:08 AM RN ONCOLOGY RESEARCH Oxygen Saturation 95% 03/29/2024 10:08 AM RN ONCOLOGY RESEARCH Inhaled Oxygen Concentration - - Weight 90.8 kg (200 lb 1.6 oz) 03/29/2024 10:08 AM RN ONCOLOGY RESEARCH Height 177.8 cm (5' 10) 03/29/2024 10:08 AM RN ONCOLOGY RESEARCH Body Mass Index 28.71 03/29/2024 10:08 AM RN ONCOLOGY RESEARCH Plan of Treatment Not on file Goals [...] stairs Contact your local community or senior [place] for information on exercise, fall prevention programs, or options for improving home safety. Procedures Procedure Name Priority Date/Time Associated Diagnosis Comments HEPATITIS C ANTIBODY Routine 03/29/2024 10:53 AM RN ONCOLOGY RESEARCH Encounter for hepatitis C screening test for low risk patient from Last 3 Months or Most Recently Relevant to Health Maintenance Results * Hepatitis C antibody Blood (03/29/2024 10:53 AM RN ONCOLOGY RESEARCH) Hep C Ab Nonreactive Nonreactive Comment: Antibodies [...] on 2019. Blood 03/29/2024 10:5 3 AM RN ONCOLOGY RESEARCH 03/29/2024 12:23 PM RN ONCOLOGY RESEARCH Moni Salcido NP LAB MICROBIOLOGY - GENERAL OR DERABLES Final Result [facility] [address] [facility] Department [place] [address] from Last 3 Months or Most Recently Relevant to Health Maintenance Insurance [address] [place] [address] [facility] HMO/PPO Address: [address] [address] [place] [address] [facility] HMO/PPO Address: [address] [address] [place] [address] Care Teams Retail District Manager Relationship Specialty Start Date End Date Moni Salcido NP PCP - General Family Medicine 03/29/24
[2024-10-16] MEDS: dexAMETHasone SOD PHOS INJ 10 MG/ML 1 ML VIAL IM (03:47)
[2024-10-16] MEDS: HYDROmorphone HCL INJ (*CRX) 2 MG/ML VIAL 1 MG IM (03:47)
--- NOTE | 2024-10-16 04:13 | ED_ITS ---
HPI - Extremity Injury (Upper) General Chief Complaint: Extremity Injury, Upper Stated Complaint: R shoulder pain radiating neck Time Seen by Provider: 10/16/24 02:49 History of Present Illness HPI narrative: 34-year-old otherwise healthy male presenting to the emergency department with injury to his right scapular/shoulder region. 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 Pain got progressively worse throughout the next few days and then he can get significant pain with certain positions. He has to raise his arm above his head for relief. Has been taking Tylenol and ibuprofen at home without significant relief. No neuropathy or weakness in the digits, able to range the extremity and the pain is listed when he lowers it down below 90?. No chest pain or difficulty breathing, no neck pain or midline spinal tenderness. No traumatic injuries but states that this occurred right when he was lifting a heavy weight. Related Data Home Medications ?Medication ?Instructions ?Recorded ?Confirmed ?Last Taken ?Type testosterone cypionate 200 mg/mL mg 09/17/24 Unknown History intramuscular oil Allergies Allergy/AdvReac Type Severity Reaction Status Date / Time amoxicillin Allergy Mild THROAT Verified 09/17/24 11:28 SWELLING Review of Systems Review of Systems: As reviewed above in HPI Exam Narrative: GENERAL: [Well-appearing, well-nourished, and in no acute distress.] HEAD: [Normocephalic, atraumatic.] EYES: [PERRLA and EOMI.] ENT: Nares clear, no rhinorrhea or epistaxis. Mucous membranes moist. NECK: Supple. CHEST: [Clear to auscultation. No respiratory distress.] HEART: [Regular rate and rhythm]. No murmur heard. [Normal peripheral pulses.] ABDOMEN: [Soft, nondistended], [nontender], [No rigidity or guarding] EXTREMITIES: Reproducible pain along the medial scapular bone on the right side without any overlying skin changes. Pain is not exacerbated with abduction adduction of the shoulder or internal or external rotation of the shoulder. Negative Phoenix and Neer's testing. No tenderness along the AC joint. Strong symmetric pulses and good range of motion at the elbow and wrist. 5/5 product control and logistics analyst strength. No midline thoracic or spinal tenderness in the cervical region. SKIN: Warm, dry, no rash. NEURO: [No focal deficits]. Alert and oriented [x3.] PSYCH: [Normal mood and affect.] Course Vital Signs Vital signs: Vital Signs Temperature 36.8 C 10/16/24 02:26 Pulse Rate 96 10/16/24 02:26 Respiratory Rate 20 10/16/24 02:26 Blood Pressure 157/102 H 10/16/24 02:26 Pulse Oximetry 98 10/16/24 02:26 Oxygen Delivery Room Air 10/16/24 02:26 Temperature 36.8 C 10/16/24 02:26 Pulse Rate 96 10/16/24 02:26 Respiratory Rate 20 10/16/24 02:26 Blood Pressure 157/102 H 10/16/24 02:26 Pulse Oximetry 98 10/16/24 02:26 Oxygen Delivery Room Air 10/16/24 02:26 MDM - Extremity Injury (Upper) MDM Narrative Medical decision making narrative: 34-year-old otherwise healthy male presenting to the emergency department with i njury to his right scapular/shoulder region. 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 Pain got progressively worse throughout the next few days and then he can get significant pain with certain positions. He has to raise his arm above his head for relief. Has been taking Tylenol and ibuprofen at home without significant relief. No neuropathy or weakness in the digits, able to range the extremity and the pain is listed when he lowers it down below 90?. No chest pain or difficulty breathing, no neck pain or midline spinal tenderness. No traumatic injuries but states that this occurred right when he was lifting a heavy weight. Reproducible pain along the medial scapular bone on the right side without any overlying skin changes. Pain is not exacerbated with abduction adduction of the shoulder or internal or external rotation of the shoulder. Negative Phoenix and Neer's testing. No tenderness along the AC joint. Strong symmetric pulses and good range of motion at the elbow and wrist. 5/5 product control and logistics analyst strength. No midline thoracic or spinal tenderness in the cervical region. Vital signs are normal. X-rays of the scapular and shoulder were obtained and differential likely includes musculoskeletal derangement or muscle spasm/subscapularis injury as the location the pain is deep to his shoulder blade. No neck pain or radiculopathy symptoms. No signs of rotator cuff impingement on exam. Patient given intramuscular Decadron and Dilaudid and x-rays reviewed. Patient had some pain improvement with Decadron dilaudid. X-rays independently reviewed and also interpreted by Radiology. I do not appreciate any fracture dislocations, no acute process identified. Radiology confirms with no acute fracture dislocation in the shoulder, no acute fracture in the scapular but there is some irregularity in the glenoid presumably from remote injury. Patient will be sent home with multimodal pain medication regimen and work note and referral to Orthopedics. Patient is safe for discharge at this time. Medical Records Attestation: I reviewed the patient's medical records. Imaging Data Attestation: I personally reviewed and interpreted this imaging study as follows: My impression: X-rays independently reviewed and also interpreted by Radiology. I do not appreciate any fracture dislocations, no acute process identified. Radiology confirms with no acute fracture dislocation in the shoulder, no acute fracture in the scapular but there is some irregularity in the glenoid presumably from remote injury. Discharge Plan Discharge Clinical Impression: Pain of right scapula Patient Disposition: Home Condition: Stable Instructions: Antibiotic Form Additional Instructions: X-rays do not show any abnormalities in the bones or obvious soft tissue injury. We will send you home with a multimodal pain regimen and refer you to orthopedics further evaluation and possible physical therapy if not improved with conservative management. Return with any emergent concerns. Patient Language: Czech Prescriptions: New ketorolac 10 mg tablet 10 mg PO Q8H PRN (Reason: pain) 5 Days Qty: 20 0RF Rx Instructions: maximum total duration of 5 days from all oral, intranasal, or parenteral formulations methocarbamol 750 mg tablet 750 mg PO TID PRN (Reason: pain) Qty: 20 0RF lidocaine 5 % adhesive patch,medicated 1 patch topical DAILY Qty: 15 0RF Rx Instructions: leave on most painful area for up to 12 hrs tramadol 50 mg tablet 50 mg PO Q6H PRN (Reason: pain) Qty: 14 0RF No Action testosterone cypionate 200 mg/mL oil Follow-up/Referrals: Shivam Mar MD [Physician] - 3 Days (Lifting injury, scapular pain) PHYSICIAN,FORM SETTER SUPERVISOR [Primary Care Provider] - Joshua Linda MD [Physician] - 3 Days (Lifting injury, scapular pain) Elmer Irene MD [Physician] - 3 Days (Lifting injury, scapular pain) Stand Alone Forms: Work/School Release IP Time of Disposition: 05:21
--- NOTE | 2024-10-16 05:30 | PC.NURSE ---
patient discharged prior to arm sling orders being placed.
== END 2024-10-16 05:20 | disposition home or self-care (01) ==
PROVIDERS: Emergency Provider Student in an Organized Health Care Education/Training Program
DX: S49.91XA Unspecified injury of right shoulder and upper arm, initial encounter (principal); X50.0XXA Overexertion from strenuous movement or load, initial encounter; Y93.B3 Activity, free weights
CPT/HCPCS: 73010; 73030; 96372; 99284; J1100; J1171